=== PATIENT | male | born 1985 | race African-American/Black ===

== ENCOUNTER 2021-05-28 17:22 | Emergency (ER) | payer OTHER, SELFPAY ==
[2021-05-28 17:26] VITALS: BP 146/91; PULSE 75; RESP 16; TEMP 36.6; O2SAT 100; BMI 33.5
[2021-05-28 17:56] LABS: COVID19 -Nasal RAPID Negative (Negative)
--- NOTE | 2021-05-28 18:51 | ED_ITS ---
HPI - General Adult General Chief complaint: Upper Respiratory Symptoms Stated complaint: LOST OF TASTE BODY ACHES Time Seen by Provider: 05/28/21 18:41 Source: patient Mode of arrival: Ambulatory Limitations: no limitations History of Present Illness HPI narrative: Patient is a 36-year-old male who is fully immunized for COVID- 19. Is greater than 2 weeks after his 2nd Pfizer vaccine. Yesterday started to have some body aches and not feeling very well and then today had lost taste. He works on a [employer] and he is here for COVID-19 testing. Related Data Allergies Allergy/AdvReac Type Severity Reaction Status Date / Time No Known Drug Allergies Allergy Verified 05/28/21 17:31 Review of Systems Constitutional Constitutional: Reports as per HPI ENT Ears, Nose, Mouth, and Throat: Reports as per HPI Cardiovascular Cardiovascular: Reports system reviewed and no additional complaints, except as documented Respiratory Respiratory: Reports system reviewed and no additional complaints, except as documented Gastrointestinal Gastrointestinal: Reports system reviewed and no additional complaints, except as documented Genitourinary Genitourinary: Reports system reviewed and no additional complaints, except as documented Musculoskeletal Musculoskeletal: Reports system reviewed and no additional complaints, except as documented Integumentary/Breasts Skin/Breast: Reports system reviewed and no additional complaints, except as documented Neurologic Neurologic: Reports system reviewed and no additional complaints, except as documented Hematologic/Lymphatic On Anticoagulants: No Patient History Medical History Healthy adult Social History Smoking Status: Never smoker Smoking Status: Never smoker alcohol intake frequency: 0-2 drinks per day Substance Use Type: does not use Exam Initial Vital Signs Initial Vital Signs: Vital Signs Temperature 98 F 05/28/21 17:26 Pulse Rate 75 05/28/21 17:26 Respiratory Rate 16 05/28/21 17:26 Blood Pressure 146/91 H 05/28/21 17:26 Pulse Oximetry 100 05/28/21 17:26 Const General: cooperative and healthy appearing [facility] Head: normal to inspection and normocephalic Eyes General: appearance normal, both eyes and all related structures Resp Effort & Inspection: normal respiratory effort Cardio Rate: regular rate Skin General: no rashes or lesions noted Neuro General: patient alert, patient awake, patient oriented x3 and moves all extremities Extrem General: normal to inspection Psych Appearance: grossly normal and well kempt Course Orders Ordered: ED Orders 05/28/21 17:26 COVID19 -Nasal swab/Pre-Proc Stat Vital Signs Vital signs: Vital Signs - 8 hr 05/28/21 19:07 Pulse Rate 80 Respiratory Rate 18 Blood Pressure 140/60 Pulse Oximetry 99 Medical Decision Making Lab Data Lab results reviewed: Yes I reviewed the patient's lab results. Labs: Lab Results 05/28/21 Range/Units 17:26 SARS-CoV-2 (PCR) Negative (Negative) MDM Narrative Medical decision making narrative: Patient's COVID-19 test was negative. He was provided with these results. No further workup needed in the emergency department. Discharge Plan Departure Patient Disposition: Home Clinical Impression: Body aches, Encounter for laboratory testing for COVID-19 virus Instructions: Can COVID-19 be prevented? Activity Restrictions/Additional Instructions: Your COVID-19 test today was negative. You can take Tylenol for any body aches or fevers. Contact your primary doctor for follow-up. Return to the emergency department for any new or worsening symptoms
[2021-05-28 19:07] VITALS: BP 140/60; PULSE 80; RESP 18; O2SAT 99
== END 2021-05-28 19:07 | disposition home or self-care (01) ==
PROVIDERS: Emergency Medicine; Emergency Provider Emergency Medicine
DX: R52 Pain, unspecified (principal); Z20.822 Contact with and (suspected) exposure to COVID-19
CPT/HCPCS: 87635; 99281; 99282; C9803